=== PATIENT | male | born 1985 | race Caucasian/White ===

== ENCOUNTER 2022-07-02 08:23 | Outpatient (CLI) | payer OTHER, SELFPAY ==
[2022-07-02 12:14] LABS: Chloride* 106 mmol/L (96-114)
[2022-07-02 12:15] LABS: Albumin* 4.5 g/dL (3.3-5.0); Sodium* 139 mmol/L (135-149)
[2022-07-02 12:16] LABS: Potassium* 4.6 mmol/L (3.6-5.1)
[2022-07-02 12:18] LABS: Alanine Aminotransferase* 78 U/L (4-50); Alkaline Phosphatase* 77 U/L (40-150); Aspartate Amino Transferase* 44 U/L (12-35); Bilirubin Total* 1.2 mg/dL (0.1-1.5); Blood Urea Nitrogen* 14 mg/dL (5-24); Carbon Dioxide* 27 mmol/L (20-32); Cholesterol* 170 mg/dL (90-199); Creatinine* 0.9 mg/dL (0.5-1.5); Estimated Glomerular Filt Rate 113 ml/min; Glucose* 108 mg/dL (60-115); Total Protein* 7.1 g/dL (6.0-8.3); Triglycerides* 170 mg/dL (40-149); Uric Acid* 5.2 mg/dL (2.2-8.4)
[2022-07-02 12:19] LABS: Calcium* 9.3 mg/dL (8.4-10.6); HDL Cholesterol* 47 mg/dL (>=40); LDL Cholesterol Calculated 89 mg/dL (<100)
== END 2022-07-02 08:24 | disposition home or self-care (01) ==
PROVIDERS: PCP Family Medicine; Visit Provider Family Medicine
DX: E78.2 Mixed hyperlipidemia (principal); I10 Essential (primary) hypertension; M10.9 Gout, unspecified
CPT/HCPCS: 80053; 80061; 83735; 84550